=== PATIENT | female | born 1995 | race Caucasian/White ===

== ENCOUNTER 2017-01-04 11:55 | Emergency (ER) | payer BC ==
[~2017-01-04] VITALS: Ht 154.9 cm; Wt 60.0 kg
[2017-01-04] MEDS ORDERED: PENICILLIN V POTASSIUM 500 MG TABLET PO ONE (12:30)
[2017-01-04] MEDS ORDERED: ACETAMINOPHEN 325 MG TABLET PO ONE (12:30)
[2017-01-04 12:59] VITALS: BP 122/74
== END 2017-01-04 13:07 | disposition home or self-care (01) ==
LOC: EMS 11:59
DX: J02.0 Streptococcal pharyngitis (principal)
CPT/HCPCS: 87430; 99283

== ENCOUNTER 2017-01-23 12:13 | Emergency (ER) | payer BC ==
[~2017-01-23] VITALS: Ht 154.9 cm; Wt 57.7 kg
[2017-01-23 13:12] LABS: APPEARANCE,URINE CLOUDY (CLEAR); BILIRUBIN,URINE NEGATIVE (NEGATIVE); GLUCOSE, URINE (UA) NEGATIVE (NEGATIVE); KETONES,URINE TRACE mg/dL (NEGATIVE); LEUKOCYTE ESTERASE ,URINE MODERATE (NEGATIVE); NITRATE,URINE NEGATIVE (NEGATIVE); OCCULT BLOOD,URINE NEGATIVE (NEGATIVE); PROTEIN,URINE TRACE (NEGATIVE)
[2017-01-23 13:18] LABS: BACTERIA,URINE Few /HPF (None Seen); RBC,URINE None Seen /HPF (0-2)
[2017-01-23 13:19] LABS: SQUAMOUS EPITHELIAL CELL,UR Many /LPF (None Seen)
[2017-01-23 13:59] VITALS: BP 106/66
== END 2017-01-23 14:07 | disposition home or self-care (01) ==
LOC: EMS 12:14
DX: B37.3 Candidiasis of vulva and vagina (principal)
CPT/HCPCS: 81025; 87086; 87147; 99284